=== PATIENT | male | born 1990 | race Caucasian/White ===

== ENCOUNTER 2020-02-29 14:24 | Inpatient (IN) | payer OTHER ==
[2020-02-29] MEDS ORDERED: IPRATROPIUM-ALBUTEROL 3 ML NEB INHALATION PRN (16:40)
[2020-02-29] MEDS ORDERED: PNEUMONIA PROTOCOL UTILIZED 1 EACH MISC PO PRN (16:40)
--- NOTE | 2020-02-29 16:40 | ED ---
SOB HPI - General Chief Complaint: Shortness of Breath Stated Complaint: PE and pnuemonia Time Seen by Provider: 02/29/20 14:30 Source: EMS, RN notes reviewed Mode of arrival: EMS Limitations: no limitations - History of Present Illness Initial Comments: This is a 29-year-old male who was transferred from [facility] where he presented to the emergency Department with complaints of shortness of breath cough of bloody phlegm whenever one or 2 days. He was found on evaluation to have a pulmonary embolism and a right middle lobe as well as evidence of a left lower lobe pneumonia. Question. Lesion versus mass. He was transferred here for further evaluation he has no other complaints no other prior history of PE or other known pulmonary problems. MD Complaint: shortness of breath, cough - Related Data Allergies Allergy/AdvReac Type Severity Reaction Status Date / Time No Known Allergies Allergy Verified 02/29/20 14:32 Review of Systems ROS Statement: Those systems with pertinent positive or pertinent negative responses have been documented in the HPI. ROS Other: All systems not noted in ROS Statement are negative. Past Medical History Past Medical History: No Reported History History of Any Multi-Drug Resistant Organisms: None Reported Past Surgical History: Appendectomy Past Psychological History: No Psychological Hx Reported Smoking Status: Current every day smoker Past Alcohol Use History: None Reported Past Drug Use History: None Reported General Exam - General Exam Comments Initial Comments: This is a well-developed well-nourished awake alert oriented 3 male Limitations: no limitations General appearance: alert, in no apparent distress Head exam: Present: atraumatic, normocephalic, normal inspection Eye exam: Present: normal appearance, PERRL, EOMI. Absent: scleral icterus, conjunctival injection, periorbital swelling ENT exam: Present: normal exam, mucous membranes moist Neck exam: Present: normal inspection. Absent: tenderness, meningismus, lymphadenopathy Respiratory exam: Present: decreased breath sounds. Absent: respiratory distress, wheezes, rales, rhonchi, stridor Cardiovascular Exam: Present: regular rate, normal rhythm, normal heart sounds. Absent: systolic murmur, diastolic murmur, rubs, gallop, clicks GI/Abdominal exam: Present: soft, normal bowel sounds. Absent: distended, tenderness, guarding, rebound, rigid Extremities exam: Present: normal inspection, full ROM, normal capillary refill. Absent: tenderness, pedal edema, joint swelling, calf tenderness Back exam: Present: normal inspection Neurological exam: Present: alert, oriented X3, CN II-XII intact Psychiatric exam: Present: normal affect, normal mood Skin exam: Present: warm, dry, intact, normal color. Absent: rash Course Vital Signs 02/29/20 14:26 Temperature 98.2 F Pulse Rate 92 Respiratory 14 Rate Blood Pressure 112/67 O2 Sat by Pulse 99 Oximetry Medical Decision Making - Medical Decision Making I did review the imaging and reports as well as the paperwork sent from the other hospital patient will be admitted patient will be admitted Dr. Mchugh. Disposition Clinical Impression: Pulmonary embolism, Pneumonia Disposition: ADMITTED IP TO THIS HOSP Condition: Fair Referrals: None,Stated [Primary Care Provider] - 1-2 days
[2020-02-29] MEDS ORDERED: ONDANSETRON 4 MG/2 ML VIAL IVP PRN (16:55)
[2020-02-29] MEDS ORDERED: ACETAMINOPHEN TAB 325 MG TAB PO PRN (16:55)
[2020-02-29] MEDS ORDERED: AZITHROMYCIN 500 MG in SODIUM CHLORIDE 0.9% 250 ML IVPB SCH (17:00)
--- NOTE | 2020-02-29 17:22 | P.HPIM ---
History of Present Illness H&P Date: 02/29/20 Chief Complaint: Cough and chest pain This is a 29-year-old male with past medical history significant for chronic tobacco abuse that presented to an outside emergency room with worsening cough and chest pain with deep breath. Patient informed me that couple of days ago he started having worsening cough that was originally productive of yellowish sputum but subsequently started having bright red blood. Patient said that he was having chest pain when he takes deep breath. He denies any fevers or chills. No recent sick contact. He admits to smoking one pack of cigarettes daily. He was evaluated at the outside emergency room and CT angiogram showed a pulmonary embolism within the right middle lobe pulmonary artery. Additional left and right lower lobe filling defect may be visualized on the reconstructed coronal plane images. A 2 cm right infrahilar lymph node is present. Left infrahilar adenopathy measuring 1.7 cm. There is a large consolidation along the left posterior lateral lung field measuring approximately 3.8 x 4.0 x 5.7 cm Patient was transferred to our hospital for further management. He was comfortable when I saw him in the ER. He denies shortness of breath. He denies any prior history of blood clots. He said that his mother was recently diagnosed with a pulmonary emboli. He denies any recent surgery or long trips. No other infectious factors for the VTE. Review of Systems Review of system: 14 points review of systems were obtained and were negative except to what were mentioned in the HPI. Past Medical History Past Medical History: No Reported History History of Any Multi-Drug Resistant Organisms: None Reported Past Surgical History: Appendectomy Past Psychological History: No Psychological Hx Reported Smoking Status: Current every day smoker Past Alcohol Use History: None Reported Past Drug Use History: None Reported Medications and Allergies Home Medications Medication Instructions Recorded Confirmed Type No Known Home Medications 02/29/20 02/29/20 History Allergies Allergy/AdvReac Type Severity Reaction Status Date / Time No Known Allergies Allergy Verified 02/29/20 16:48 Physical Exam Vitals: Vital Signs Temp Pulse Resp BP Pulse Ox 02/29/20 14:26 98.2 F 92 14 112/67 99 Intake and Output 02/29/20 02/29/20 02/29/20 06:59 14:59 22:59 Other: Weight 84.368 kg General: The patient is awake and alert, in no distress Eye: there is normal conjunctiva bilaterally. Neck: The neck is supple, there is no JVD. Cardiovascular: Normal S1-S2, no S3-S4, no murmurs. Respiratory: Lungs clear to auscultation bilaterally Gastrointestinal: Abdomen is soft, nontender Musculoskeletal: There is no pedal edema. Neurological:. Speech is normal. Skin: Skin is warm and dry Assessment and Plan Assessment: 1. Bilateral PE, started on IV heparin drip. No clear risk factors for VTE other than smoking cigarettes. We will obtain ultrasound of the lower extremities to rule out DVT. 2. Left lung pneumonia, with a large consolidation noted on computed tomography scan with a questionable cavitary lesion versus mass. Started on IV Zosyn. Sputum culture ordered. I would obtain pro-calcitonin. Dr. Collins consulted for further evaluation 3. Bilateral infrahilar lymphadenopathy, most likely reactive. We will need repeat imaging in 4-6 weeks 4. Tobacco abuse: Counseled extensively to quit. Nicotine patch ordered. Today, I reviewed his medication list and lab work results. Most of the lab work done at outside hospital was within normal/acceptable range. No evidence of sepsis. Patient is stable. We will continue antibiotic and IV heparin. Awaiting pulmonology evaluation. The patient is admitted with an anticipated greater than 2 midnight stay for evaluation of the medical problems noted above Discussed with: Patient and nursing staff Anticipated discharge date: To be determined based on clinical course Anticipated discharge place: home A total of 45 minutes was spent on the care of this complex patient more than 50% of the time was spent in counseling and care coordination.
[2020-02-29] MEDS: HEPARIN SOD,PORK IN 0.45% NACL 25,000 UNIT in 0.45% NACL 1 250ML.BAG IV SCH (17:24)
[2020-02-29] MEDS: SODIUM CHLORIDE 0.9% 1,000 ML IV SCH (17:30)
[2020-02-29 19:05] LABS: Prothrombin Time 10.1 sec (9.0-12.0)
[2020-02-29 19:08] LABS: Basophils # (A) 0.1 k/uL (0-0.2); Basophils % (A) 1 %; Eosinophils # (A) 0.2 k/uL (0-0.7); Eosinophils % (A) 3 %; HCT 41.4 % (39.0-53.0); HGB 13.5 gm/dL (13.0-17.5); Lymphocytes # (A) 1.9 k/uL (1.0-4.8); Lymphocytes % (A) 24 %; MCH 32.5 pg (25.0-35.0); MCHC 32.5 g/dL (31.0-37.0); MCV 99.7 fL (80.0-100.0); Mean Platelet Volume 6.7; Monocytes # (A) 0.5 k/uL (0-1.0); Monocytes % (A) 6 %; Neutrophils # (A) 5.4 k/uL (1.3-7.7); Neutrophils % (A) 66 %; Platelet Count 364 k/uL (150-450); RBC 4.15 m/uL (4.30-5.90); RDW 12.4 % (11.5-15.5); WBC 8.1 k/uL (3.8-10.6)
--- NOTE | 2020-02-29 19:30 | US ---
EXAMINATION TYPE: US venous doppler duplex LE BI DATE OF EXAM: 02/29/2020 7:04 PM COMPARISON: NONE CLINICAL HISTORY: Bilateral PE rule out DVT. SIDE PERFORMED: Bilateral TECHNIQUE: The lower extremity deep venous system is examined utilizing real time linear array sonog jennifer with graded compression, doppler sonography and color-flow sonography. VESSELS IMAGED: External Iliac Vein (EIV) Common Femoral Vein Deep Femoral Vein Greater Saphenous Vein * Femoral Vein Popliteal Vein Small Saphenous Vein * Proximal Calf Veins (* superficial vessels) Right Leg: Negative for DVT Left Leg: Negative for DVT IMPRESSION: No evidence of deep vein thrombosis in both legs.
[2020-02-29] MEDS: NICOTINE 14MG/24HR PATCH TRANSDERM SCH (19:31)
[2020-02-29] MEDS: HEPARIN SODIUM,PORCINE 5,000 UNIT/ML 1 ML VIAL IV PRN (19:57)
--- NOTE | 2020-02-29 20:07 | P.MHFACE ---
Face to Face Restrain/Seclus - Evaluation Patient's Immediate Situation: Endangers self safety, Endangers staff safety Patient's Reaction to the Intervention: Appropriate, Calm Patient's Medical & Behavioral Condition: Awake, Alert Need to Continue or Terminate Restraint or Seclusion: Continue Need to Continue or Terminate Restraint/Seclusion - Comment: Notified by the staff that the patient had collected some pieces of metal were found in his bed. The patient had also been threatening the staff and other patients. Discussed with the patient regarding the need for cooperation. Advised the staff to discontinue the restraints as soon as possible once the patient is no longer a threat to himself or the staff. Continue the restraints for now.
[2020-02-29] MEDS: PIPERACILLIN-TAZOBACTAM 3.375 GM in SODIUM CHLORIDE 0.9% 100 ML IVPB SCH (23:50)
[2020-03-01] MEDS: SODIUM CHLORIDE 0.9% 1,000 ML IV SCH ×2 (02:40→14:09)
[2020-03-01] MEDS: HEPARIN SOD,PORK IN 0.45% NACL 25,000 UNIT in 0.45% NACL 1 250ML.BAG IV SCH ×2 (06:29→17:40)
[2020-03-01 06:44] LABS: Basophils # (A) 0.1 k/uL (0-0.2); Basophils % (A) 1 %; Eosinophils # (A) 0.3 k/uL (0-0.7); Eosinophils % (A) 3 %; HCT 44.9 % (39.0-53.0); Lymphocytes % (A) 17 %; MCH 33.2 pg (25.0-35.0); MCHC 33.3 g/dL (31.0-37.0); MCV 99.8 fL (80.0-100.0); Mean Platelet Volume 6.1; Monocytes # (A) 0.7 k/uL (0-1.0); Monocytes % (A) 6 %; Neutrophils # (A) 8.1 k/uL (1.3-7.7); Neutrophils % (A) 72 %; Platelet Count 357 k/uL (150-450); RDW 12.3 % (11.5-15.5); WBC 11.3 k/uL (3.8-10.6)
--- NOTE | 2020-03-01 08:28 | XR ---
EXAMINATION TYPE: XR chest 2V DATE OF EXAM: 03/01/2020 COMPARISON: NONE HISTORY: Pneumonia. TECHNIQUE: Frontal and lateral views of the chest are obtained. FINDINGS: There is peripheral left basilar focal consolidation. Right lung is clear. No pleural effu camilla or pneumothorax seen bilaterally. The cardiac silhouette size is within normal limits. The oss eous structures are intact. IMPRESSION: Peripheral basilar left lower lobe acute pneumonic infiltrate. A Yellow level critical message alert has been initiated for Edward Holder via the [employer] on 03/01/2020 8:25 AM. This message alert has been sent to Edward Holder via [employer] preferences provided by the clinician for the receipt of Radiology Critical Findings. Message ID [id number].
[2020-03-01] MEDS: NICOTINE 14MG/24HR PATCH TRANSDERM SCH (08:36)
[2020-03-01] MEDS: PIPERACILLIN-TAZOBACTAM 3.375 GM in SODIUM CHLORIDE 0.9% 100 ML IVPB SCH ×2 (08:37→15:41)
--- NOTE | 2020-03-01 10:39 | P.PN ---
Subjective Progress Note Date: 03/01/20 Principal diagnosis: Shortness of breath and hemoptysis Patient is feeling well today. He said that shortness of breath is improving. No acute events overnight reported by nursing staff. Objective - Vital Signs Vital signs: Vital Signs Temp 97.8 F 03/01/20 07:00 Pulse 87 03/01/20 07:00 Resp 18 03/01/20 07:00 BP 114/62 03/01/20 07:00 Pulse Ox 97 03/01/20 07:00 Intake & Output 02/29/20 03/01/20 03/01/20 18:59 06:59 18:59 Intake Total 456.065 Output Total 400 Balance 56.065 Weight 84.368 kg Intake: Intake, IV Titration 234.065 Amount Heparin Sod,Pork in 0.45% 234.065 NaCl 25,000 unit In 0.45 % NaCl 1 250ml.bag @ 18 UNITS/KG/HR 15.186 mls/hr IV .[id number] [facility] Rx#: [id number] Oral 222 Output: Urine 400 Other: Voiding Method Toilet # Voids 1 - Exam General: The patient is awake and alert, in no distress Eye: there is normal conjunctiva bilaterally. Neck: The neck is supple, there is no JVD. Cardiovascular: Normal S1-S2, no S3-S4, no murmurs. Respiratory: Lungs clear to auscultation bilaterally Gastrointestinal: Abdomen is soft, nontender Musculoskeletal: There is no pedal edema. Neurological:. Speech is normal. Skin: Skin is warm and dry - Labs CBC & Chem 7: 03/01/20 06:31 Labs: Abnormal Lab Results - Last 24 Hours (Table) 02/29/20 02/29/20 03/01/20 Range/Units 18:20 22:33 06:31 WBC 11.3 H (3.8-10.6) k/uL RBC 4.15 L (4.30-5.90) m/uL Neutrophils # 8.1 H (1.3-7.7) k/uL APTT 52.1 H (22.0-30.0) sec 03/01/20 Range/Units 09:27 WBC (3.8-10.6) k/uL RBC (4.30-5.90) m/uL Neutrophils # (1.3-7.7) k/uL APTT 33.7 H (22.0-30.0) sec Assessment and Plan Assessment: This is a 29-year-old male with no significant past medical history who presented to an outside emergency room with worsening shortness of breath and hemoptysis. He was evaluated at the outside emergency room and CT angiogram showed a pulmonary embolism within the right middle lobe pulmonary artery. Additional left and right lower lobe filling defect may be visualized on the reconstructed coronal plane images. A 2 cm right infrahilar lymph node is present. Left infrahilar adenopathy measuring 1.7 cm. There is a large consolidation along the left posterior lateral lung field measuring approximately 3.8 x 4.0 x 5.7 cm Patient was transferred to our hospital for further management. 1. Bilateral PE, started on IV heparin drip. No clear risk factors for VTE other than smoking cigarettes. ultrasound of the lower extremities negative for DVT. 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 I would start Coumadin bridging today with Coumadin 10 mg once now and 5 mg daily starting tomorrow. Monitor INR daily. 2. Left lung pneumonia, with a large consolidation noted on computed tomography scan with a questionable cavitary lesion versus mass. Started on IV Zosyn. Sputum culture ordered. pro-calcitonin normal. Blood culture pending. Dr. Collins consulted for further evaluation 3. Bilateral infrahilar lymphadenopathy, most likely reactive. We will need repeat imaging in 4-6 weeks 4. Tobacco abuse: Counseled extensively to quit. Nicotine patch ordered. Today, I reviewed his medication list and lab work results. Patient is stable. We will continue antibiotic and IV heparin. Awaiting pulmonology evaluation.
[2020-03-01] MEDS: HEPARIN SODIUM,PORCINE 5,000 UNIT/ML 1 ML VIAL IV PRN (10:43)
[2020-03-01] MEDS ORDERED: AZITHROMYCIN 500 MG in SODIUM CHLORIDE 0.9% 250 ML IVPB SCH (12:00)
[2020-03-01 15:02] LABS: African American GFR (CKD) 140.9 (60.0-200.0); Albumin 4.3 g/dL (3.80-4.90); Albumin/Globulin Ratio 1.87 (1.60-3.17); Anion Gap 10.5 mmol/L (4.00-12.00); BUN/Creat Ratio 8.75 Ratio (12.00-20.00); Calcium 9.2 mg/dL (8.7-10.3); Carbon Dioxide 22.5 mmol/L (21.6-31.8); Globulin 2.3 g/dL (1.6-3.3); Non-African American GFR(CKD) 121.6 (60.0-200.0); Potassium 4.6 mmol/L (3.5-5.5); Total Bilirubin 0.5 mg/dL (0.2-1.2); Total Protein 6.6 g/dL (6.2-8.2)
--- NOTE | 2020-03-01 17:37 | CT ---
EXAMINATION TYPE: CT angio chest DATE OF EXAM: 03/01/2020 COMPARISON: None HISTORY: Follow up for PE CT DLP: 401.4 mGycm Automated exposure control for dose reduction was used. CONTRAST: Performed with IV Contrast, patient injected with 100 mL of Isovue 370. There are 3-D post processed images. Images obtained from the thoracic inlet to the diaphragm with IV contrast. There is a 6 cm area of somewhat rounded airspace consolidation in the left lower lobe posteriorly ad jacent to the pleura. There is small left pleural effusion. There is minimal subsegmental atelectasis at the lung bases. Heart size is normal. Thoracic aorta is intact. There is no aneurysm or dissection. There are multiple filling defects in the right lower lobe pulmonary artery. There are also some fill ing defects in proximal branches of the left lower lobe pulmonary artery. There is compression fracture of T9 and T8 T7 vertebra up to 40%. The ribs appear intact. IMPRESSION: Left lower lobe consolidation could relate to pulmonary infarct or pneumonia. Bilateral extensive pul monary emboli in the lower lobes. This exam was discussed with the nurse Radha at 5:30 PM on the erlinda or.
[2020-03-01] MEDS ORDERED: WARFARIN 10 MG TAB PO ONE (18:00)
--- NOTE | 2020-03-01 22:30 | CONS ---
CONSULTATION PULMONARY/CRITICAL CARE CONSULTATION: DATE OF SERVICE: 03/01/2020 REASON FOR CONSULTATION: Shortness of breath, pulmonary embolism, pneumonia. This is a 29-year-old gentleman who was transferred down from [facility], at which time he presented to the emergency department there with complaints of shortness of breath, bloody phlegm and just not feeling well. He had not been feeling well for 2 days or so prior to his admission to the emergency room at [facility]. Apparently he was evaluated there and was found to have a pulmonary embolism and also possible pneumonia involving the left lower lobe. He was transferred down to our facility for further evaluation. He denied any fever or chills. He was coughing but not producing much phlegm. Some of the phlegm did have blood in it. He apparently states that his mother was recently told that she had a pulmonary embolism as well. He does smoke cigarettes. He smokes about a pack a day. 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 ALLERGIES: DENIED. HOME MEDICATIONS: None. CURRENT MEDICATIONS: Current medications include Tylenol, DuoNeb, IV heparin, nicotine patch, Zosyn, Zofran and warfarin. MEDICAL HISTORY: Negative. SURGICAL HISTORY: Appendectomy. SOCIAL HISTORY: Positive for one pack of cigarettes a day. He denies any alcohol use or illicit drug use. FAMILY HISTORY: Noncontributory save for mother with a prior history of pulmonary embolism. REVIEW OF SYSTEMS: CONSTITUTIONAL: Negative. NEUROLOGIC: Negative. HEENT: Negative. CARDIOVASCULAR: Negative. PULMONARY: Shortness of breath, cough, non-productive. GI: Negative. : Negative. RHEUMATOLOGIC: Negative. IMMUNOLOGIC: Negative. ENDOCRINOLOGIC: Negative. DERMATOLOGIC: Negative. PHYSICAL EXAMINATION: VITAL SIGNS: Current vital signs are reviewed. Temperature is 98.7 heart rate 84, respiratory rate 18, blood pressure 129/73, mean 91, room-air saturation 97%. GENERAL APPEARANCE: Appears in no acute distress. HEENT: Examination is grossly unremarkable. NECK: Supple. Full range of motion. No adenopathy. Neck veins are flat. CARDIOVASCULAR: Examination reveals regular rhythm and rate. S1, S2 normal. No S3, S4 or murmur. LUNGS: Relatively clear. Breath sounds equal. Mild rhonchi. No wheezes or crackles. ABDOMEN: Soft. EXTREMITIES: Intact. No cyanosis, clubbing or edema. SKIN: Without rash. NEUROLOGIC: Neurologic examination is nonfocal. LABS/IMAGING: Reviewed. White count 11.3, hemoglobin 15, hematocrit 44.9, platelet count 357,000. PTT is 33.7. Sodium, potassium, chloride, CO2 all normal. Anion gap is normal. BUN and creatinine were normal. The rest of the labs look okay. Procalcitonin was 0.06, which is in the normal range. Coronavirus was negative. Microbiology is negative. Venous Doppler study was negative for DVT in both legs. Chest x-ray was done which showed a patchy infiltrate in the left lower lobe. Medications are reviewed. ASSESSMENT: 1. Community-acquired pneumonia, left lower lobe. 2. Apparent recent diagnosis of pulmonary embolism in an outside hospital. 3. No evidence of deep venous thrombosis. 4. Ongoing tobacco use with nicotine addiction. 5. No prior medical history. PLAN: The patient really should be treated for community-acquired pneumonia. He should be on oral Zithromax and IV Rocephin. The patient was started on warfarin. He remains on IV heparin. My inclination is to repeat the CT angiogram, as it seems unlikely that this patient would have had a pulmonary embolism. I have not had the opportunity to review the scan from the outside hospital. Additional recommendations and suggestions are forthcoming. Prognosis is guarded. Will continue to follow. MMODL / IJN: [id number] /
[2020-03-02] MEDS: PIPERACILLIN-TAZOBACTAM 3.375 GM in SODIUM CHLORIDE 0.9% 100 ML IVPB SCH ×2 (00:46→08:32)
[2020-03-02] MEDS: HEPARIN SOD,PORK IN 0.45% NACL 25,000 UNIT in 0.45% NACL 1 250ML.BAG IV SCH (05:15)
[2020-03-02 07:22] LABS: Basophils # (A) 0.1 k/uL (0-0.2); Basophils % (A) 1 %; Eosinophils # (A) 0.3 k/uL (0-0.7); Eosinophils % (A) 3 %; HGB 13.2 gm/dL (13.0-17.5); Lymphocytes # (A) 1.1 k/uL (1.0-4.8); Lymphocytes % (A) 12 %; MCH 33.3 pg (25.0-35.0); MCHC 33.9 g/dL (31.0-37.0); MCV 98.1 fL (80.0-100.0); Mean Platelet Volume 6.2; Monocytes # (A) 0.5 k/uL (0-1.0); Monocytes % (A) 5 %; Neutrophils % (A) 78 %; Platelet Count 346 k/uL (150-450); RBC 3.98 m/uL (4.30-5.90); RDW 12.1 % (11.5-15.5)
[2020-03-02 08:24] LABS: INR 1.1 (<1.2); Partial Thromboplastin Time 38.1 sec (22.0-30.0); Prothrombin Time 10.8 sec (9.0-12.0)
[2020-03-02] MEDS: NICOTINE 14MG/24HR PATCH TRANSDERM SCH (08:32)
[2020-03-02] MEDS: HEPARIN SODIUM,PORCINE 5,000 UNIT/ML 1 ML VIAL IV PRN (08:55)
--- NOTE | 2020-03-02 15:13 | P.PN ---
Subjective Progress Note Date: 03/02/20 Principal diagnosis: Bilateral extensive pulmonary emboli in the lower lobes, with evidence of left lower lobe consolidation that could be related to pulmonary infarction or pneumonia On 03/02/2020 patient seen in follow-up on general medical surgical floor, repeat CTA chest was obtained last night owing left lower lobe consolidation that could relate to pulmonary infarction or pneumonia, and bilateral extensive pulmonary emboli in the lower lobes. Patient remains on heparin infusion, he was started on Coumadin for anticoagulation, today's INR is 1.1. He is awake and alert, he sitting up in the recliner, in no acute distress resting on room air, with a pulse ox 90%, complaints of chest pain, no hemoptysis, his been afebrile, hemodynamically patient has been stable. He states he his mother had a history of PEs, and we will obtain a hematology evaluation for possibility of a genetic hypercoagulable state related to genetic component. She has had no fever or chills, remains on Zosyn for empiric antibiotic coverage, he is on nebulizers bronchodilators, he was started on Lovenox at therapeutic dose as a bridge to anticoagulation. Objective - Vital Signs Vital signs: Vital Signs Temp 98.0 F 03/02/20 14:58 Pulse 82 03/02/20 14:58 Resp 18 03/02/20 14:58 BP 137/76 03/02/20 14:58 Pulse Ox 98 03/02/20 14:58 Intake & Output 03/01/20 03/02/20 03/02/20 18:59 06:59 18:59 Intake Total 1360.456 114 8665.163 Balance 1360.685 117 8937.163 Intake: Intake, IV Titration 780.974 250 781.163 Amount Heparin Sod,Pork in 0.45% 230.974 250 81.163 NaCl 25,000 unit In 0.45 % NaCl 1 250ml.bag @ 18 UNITS/KG/HR 15.186 mls/hr IV .[id number] [facility]OTT Rx#: [id number] Piperacillin-Tazobactam 3 100 100 .375 gm In Sodium Chloride 0.9% 100 ml @ 25 mls/hr IVPB Q8HR SCOTT Rx# :[id number] Sodium Chloride 0.9% 1, 400 600 000 ml @ 100 mls/hr IV . Q10H SCOTT Rx#:[id number] cefTRIAXone 2 gm In 50 Sodium Chloride 0.9% 50 ml @ 100 mls/hr IVPB Q24H [facility]OTT Rx#:[id number] Oral 580 300 450 Other: Voiding Method Toilet Toilet # Voids 1 - Exam GENERAL EXAM: Alert, very pleasant, 29-year-old white male, sitting up in the recliner, he is on room air with a pulse of 90% comfortable in no apparent di stress. HEAD: Normocephalic/atraumatic. EYES: Normal reaction of pupils, equal size. Conjunctiva pink, sclera white. NOSE: Clear with pink turbinates. THROAT: No erythema or exudates. NECK: No masses, no JVD, no thyroid enlargement, no adenopathy. CHEST: No chest wall deformity. Symmetrical expansion. LUNGS: Equal air entry with no crackles, wheeze, rhonchi or dullness. CVS: Regular rate and rhythm, normal S1 and S2, no gallops, no murmurs, no rubs ABDOMEN: Soft, nontender. No hepatosplenomegaly, normal bowel sounds, no guarding or rigidity. EXTREMITIES: No clubbing, no edema, no cyanosis, 2+ pulses and upper and lower extremities. MUSCULOSKELETAL: Muscle strength and tone normal. SPINE: No scoliosis or deformity SKIN: No rashes CENTRAL NERVOUS SYSTEM: Alert and oriented -3. No focal deficits, tone is normal in all 4 extremities. PSYCHIATRIC: Alert and oriented -3. Appropriate affect. Intact judgment and insight. - Labs CBC & Chem 7: 03/02/20 07:08 03/01/20 06:31 Labs: Abnormal Lab Results - Last 24 Hours (Table) 03/01/20 03/02/20 03/02/20 Range/Units 16:00 07:08 07:08 RBC 3.98 L (4.30-5.90) m/uL APTT 56.1 H 38.1 H (22.0-30.0) sec 03/02/20 Range/Units 14:33 RBC (4.30-5.90) m/uL APTT 47.1 H (22.0-30.0) sec Microbiology - Last 24 Hours (Table) 02/29/20 16:56 Blood Culture - Preliminary Blood No Growth after 24 hours Assessment and Plan Plan: Assessment: #1. Acute community acquired pneumonia in the left lower lobe, and bilateral infra hilar lymphadenopathy likely reactive, we'll follow up with imaging in 4-6 weeks #2. Acute bilateral extensive pulmonary emboli in the lower lobes, and the possibility of left lower lobe pulmonary infarction is not excluded #3. Chronic smoker #4. History of PE in his mother Plan: Coumadin has been started, Lovenox is being used for branch, continue with antibiotics, switch IV Zosyn to oral doxycycline. Hemodynamically stable, no altered mentation, no compressive chest pain worsening dyspnea or hemoptysis. We will obtain a hematology consultation for possibility of genetic mutation and hypercoagulable state related to that based on his history of pulmonary embolism and his mother. Patient will need outpatient follow-up in the office in the 7- 10 days, and a follow-up computed tomography scan in 4-6 weeks for follow-up on pulmonary emboli and hilar lymphadenopathy which is likely reactive. I performed a history & physical examination of the patient and discussed their management with my nurse practitioner, Ginette Edmonds. I reviewed the nurse practitioner's note and agree with the documented findings and plan of care. Lung sounds are positive for clear breath sounds. The findings and the impression was discussed with the patient. I attest to the documentation by the nurse practitioner. Time with Patient: Less than 30
[2020-03-02] MEDS: ENOXAPARIN 120 MG/0.8 ML SYRINGE SQ SCH (15:29)
[2020-03-02] MEDS ORDERED: WARFARIN 5 MG TAB PO SCH (18:00)
[2020-03-02] MEDS ORDERED: WARFARIN 5 MG TAB PO ONE (18:00)
[2020-03-02] MEDS: DOXYCYCLINE 100 MG CAP PO SCH (20:11)
[2020-03-03 07:18] LABS: Basophils % (A) 1 %; Eosinophils # (A) 0.3 k/uL (0-0.7); Eosinophils % (A) 4 %; Lymphocytes # (A) 1.1 k/uL (1.0-4.8); Lymphocytes % (A) 13 %; MCHC 32.7 g/dL (31.0-37.0); MCV 97.8 fL (80.0-100.0); Mean Platelet Volume 6.1; Monocytes # (A) 0.5 k/uL (0-1.0); Monocytes % (A) 6 %; Neutrophils # (A) 6.3 k/uL (1.3-7.7); Neutrophils % (A) 76 %; Platelet Count 370 k/uL (150-450); RDW 12.2 % (11.5-15.5); WBC 8.2 k/uL (3.8-10.6)
[2020-03-03 07:43] VITALS: BP 106/61; PULSE 55; RESP 17; TEMP 98.4
[2020-03-03] MEDS: NICOTINE 14MG/24HR PATCH TRANSDERM SCH (08:07)
[2020-03-03] MEDS: DOXYCYCLINE 100 MG CAP PO SCH (08:07)
[2020-03-03] MEDS: ENOXAPARIN 120 MG/0.8 ML SYRINGE SQ SCH (08:07)
--- NOTE | 2020-03-03 08:16 | P.PN ---
Subjective Progress Note Date: 03/02/20 Principal diagnosis: CC: Hemoptysis Patient says that he still has hemoptysis. He denies any fever or chills. He also denies any shortness of breath. Patient states that his cough has improved and now he only has a "smoker's cough" Objective - Vital Signs Vital signs: Vital Signs Temp 98.4 F 03/03/20 07:00 Pulse 55 L 03/03/20 07:00 Resp 17 03/03/20 07:00 BP 106/61 03/03/20 07:00 Pulse Ox 98 03/03/20 07:00 Intake & Output 03/02/20 03/03/20 03/03/20 18:59 06:59 18:59 Intake Total 1231.163 540 Balance 1231.163 540 Intake: Intake, IV Titration 781.163 Amount Heparin Sod,Pork in 0.45% 81.163 NaCl 25,000 unit In 0.45 % NaCl 1 250ml.bag @ 18 UNITS/KG/HR 15.186 mls/hr IV .[id number] [facility] Rx#: [id number] Piperacillin-Tazobactam 3 100 .375 gm In Sodium Chloride 0.9% 100 ml @ 25 mls/hr IVPB Q8HR [facility] Rx# :[id number] Sodium Chloride 0.9% 1, 600 000 ml @ 100 mls/hr IV . Q10H [facility] Rx#:[id number] Oral 450 540 Other: Voiding Method Toilet Toilet # Voids 2 - Exam General examination - Alert and Oriented 3 in NAD Heart - + S1S2 no murmurs Lungs - Clear to auscultation Abdomen soft NT ND +ve BS Extremities - No edema AIR VALUE TESTER - Moving all 4 extremities spontaneously Psych - Calm and cooperative - Labs CBC & Chem 7: 03/03/20 06:38 03/01/20 06:31 Labs: Abnormal Lab Results - Last 24 Hours (Table) 03/02/20 03/02/20 Range/Units 07:08 14:33 APTT 38.1 H 47.1 H (22.0-30.0) sec Microbiology - Last 24 Hours (Table) 03/02/20 20:11 Sputum Culture - Preliminary Sputum 02/29/20 16:56 Blood Culture - Preliminary Blood No Growth after 48 hours Assessment and Plan Assessment: This is a 29-year-old male with no significant past medical history who presented to an outside emergency room with worsening shortness of breath and hemoptysis. He was evaluated at the outside emergency room and CT angiogram s howed a pulmonary embolism within the right middle lobe pulmonary artery. Additional left and right lower lobe filling defect may be visualized on the reconstructed coronal plane images. A 2 cm right infrahilar lymph node is present. Left infrahilar adenopathy measuring 1.7 cm. There is a large consolidation along the left posterior lateral lung field measuring approximately 3.8 x 4.0 x 5.7 cm Patient was transferred to our hospital for further management. 1. Bilateral PE: We'll discontinue heparin drip and start the patient on Lovenox. Resume Coumadin. senior research manager to arrange for INR checks with PCP. Hematology consult for hypercoagulable workup. Patient states that he has a family history of blood clots. 2. Left lung pneumonia: Repeat CTA chest done at our hospital showed left lower lobe consolidation that could be pulmonary infarct versus pneumonia. Pulmonology discontinued Zosyn as started the patient on doxycycline. Patient will follow up with pulmonology in 7-10 days. He will need repeat imaging to ensure resolution of the consolidation. This will be followed up with pulmonology. 3. Bilateral infrahilar lymphadenopathy, most likely reactive. We will need r epeat imaging in 4-6 weeks. Patient will follow up with pulmonology as outpatient. I have discussed this with the patient at great length. 4. Tobacco abuse: Counseled extensively to quit. Nicotine patch ordered. Anticipate patient will be ready for discharge in the next 24 hours
[2020-03-03 10:51] LABS: INR 1.18 (0.90-1.11); Prothrombin Time 12.5 sec (9.9-11.9)
--- NOTE | 2020-03-03 11:36 | P.DS ---
Providers Date of admission: 02/29/20 16:41 Expected date of discharge: 03/03/20 Attending physician: George Mchugh Consults: 02/29/20 16:55 Consult Physician Routine Consulting Provider: Francheska Collins Consult Reason/Comments: Cavitary pneumonia? PE Do you want consulting provider notified?: Yes 03/02/20 11:17 Consult Physician Routine Consulting Provider: Poncho Naik Consult Reason/Comments: unprovoked PE, family hx of PE Do you want consulting provider notified?: Yes Primary care physician: Stated None Hospital Course: Discharge Diagnosis: 1. Bilateral PE: 2. Left lung pneumonia: 3. Bilateral infrahilar lymphadenopathy, most likely reactive. 4. Tobacco abuse: Counseled extensively to quit. Nicotine patch ordered. Hospital Course: This is a 29-year-old male with no significant past medical history who presented to an outside emergency room with worsening shortness of breath and hemoptysis. He was evaluated at the outside emergency room and CT angiogram showed a pulmonary embolism. A 2 cm right infrahilar lymph node is present. Left infrahilar adenopathy measuring 1.7 cm. There is a large consolidation along the left posterior lateral lung field measuring approximately 3.8 x 4.0 x 5.7 cm. Patient was transferred to our hospital for further management. Patient was started on IV antibiotics for community-acquired pneumonia. Patient was also started on heparin drip and Coumadin. Patient had a repeat CTA chest that showed left lower lobe consolidation which is likely pneumonia versus pulmonary infarct. At the time of discharge patient was transitioned to Lovenox subcu. Patient will be discharged on 7.5 mg Coumadin. Patient was told that he needs to check his INR in 2 days and to resume his Lovenox until his INR is between 2 and 3. Patient told to follow-up with his PCP to adjust his Coumadin level. Patient will also be discharged on 4 more days of doxycycline to complete his antibiotic course for possible pneumonia. Patient told to follow-up with pulmonology regarding his CT chest findings. Patient also instructed to follow with hematology for hypercoagulable workup. 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 Patient Condition at Discharge: Fair Plan - Discharge Summary Discharge Rx Participant: No New Discharge Prescriptions: New Warfarin [Coumadin] 7.5 mg PO HS 14 Days #14 tab Enoxaparin [Lovenox] 80 mg SQ Q12HR 7 Days #14 syringe Doxycycline [Vibramycin] 100 mg PO BID 4 Days #8 cap Discharge Medication List Doxycycline [Vibramycin] 100 mg PO BID 4 Days #8 cap 03/03/20 [Rx] Enoxaparin [Lovenox] 80 mg SQ Q12HR 7 Days #14 syringe 03/03/20 [Rx] Warfarin [Coumadin] 7.5 mg PO HS 14 Days #14 tab 03/03/20 [Rx] Follow up Appointment(s)/Referral(s): Poncho Naik MD [STAFF PHYSICIAN] - 1 Week Edward Joe DO [Doctor of Osteopathic Medicine] - 1 Week Opal Arauz NPC [REFERRING] - 1-2 Days Ambulatory/Diagnostic Orders: Prothrombin Time INR [LAB.AMB] Time Frame: 2 Days, Location: None Selected Prothrombin Time INR [LAB.AMB] Time Frame: 2 Days, Location: None Selected Patient Instructions/Handouts: Warfarin (By mouth), Vitamin K in Foods (DC) Discharge Disposition: HOME SELF-CARE
--- NOTE | 2020-03-03 15:33 | P.PN ---
Subjective Progress Note Date: 03/03/20 Principal diagnosis: Bilateral extensive pulmonary emboli in the lower lobes, with evidence of left lower lobe consolidation that could be related to pulmonary infarction or pneumonia On 03/02/2020 patient seen in follow-up on general medical surgical floor, repeat CTA chest was obtained last night owing left lower lobe consolidation that could relate to pulmonary infarction or pneumonia, and bilateral extensive pulmonary emboli in the lower lobes. Patient remains on heparin infusion, he was started on Coumadin for anticoagulation, today's INR is 1.1. He is awake and alert, he sitting up in the recliner, in no acute distress resting on room air, with a pulse ox 90%, complaints of chest pain, no hemoptysis, his been afebrile, hemodynamically patient has been stable. He states he his mother had a history of PEs, and we will obtain a hematology evaluation for possibility of a genetic hypercoagulable state related to genetic component. She has had no fever or chills, remains on Zosyn for empiric antibiotic coverage, he is on nebulizers bronchodilators, he was started on Lovenox at therapeutic dose as a bridge to anticoagulation. On 03/03/2020 patient seen in follow-up on general medical surgical floor, doing well, no specific complaints, no shortness of breath, chest pain. Lung sounds are clear, patient is on room air, tolerating ambulation, no acute events overnight, Prilosec been stable, she was started on Coumadin, and he was started on Lovenox 120 mg subcutaneously daily, his O2 saturations had remained stable on room air, his had no fever no chills, blood and sputum cultures have shown no growth, he remains on empiric antibiotics for possibility of pneumonia. No altered mentation, no complaints of hemoptysis, or chest pain. He is anxious to go home today. He is doing well, she was seen by hematology and was recommended to follow up on an outpatient basis Objective - Vital Signs Vital signs: Vital Signs Temp 98.4 F 03/03/20 07:00 Pulse 55 L 03/03/20 07:00 Resp 17 03/03/20 07:00 BP 106/61 03/03/20 07:00 Pulse Ox 98 03/03/20 07:00 Intake & Output 03/02/20 03/03/20 03/03/20 18:59 06:59 18:59 Intake Total 1231.163 540 Balance 1231.163 540 Intake: Intake, IV Titration 781.163 Amount Heparin Sod,Pork in 0.45% 81.163 NaCl 25,000 unit In 0.45 % NaCl 1 250ml.bag @ 18 UNITS/KG/HR 15.186 mls/hr IV .[id number] [facility] Rx#: [id number] Piperacillin-Tazobactam 3 100 .375 gm In Sodium Chloride 0.9% 100 ml @ 25 mls/hr IVPB Q8HR [facility] Rx# :[id number] Sodium Chloride 0.9% 1, 600 000 ml @ 100 mls/hr IV . Q10H [facility] Rx#:[id number] Oral 450 540 Other: Voiding Method Toilet Toilet # Voids 2 2 - Exam GENERAL EXAM: Alert, very pleasant, 29-year-old white male, sitting up in the recliner, he is on room air with a pulse of 90% comfortable in no apparent distress. HEAD: Normocephalic/atraumatic. EYES: Normal reaction of pupils, equal size. Conjunctiva pink, sclera white. NOSE: Clear with pink turbinates. THROAT: No erythema or exudates. NECK: No masses, no JVD, no thyroid enlargement, no adenopathy. CHEST: No chest wall deformity. Symmetrical expansion. LUNGS: Equal air entry with no crackles, wheeze, rhonchi or dullness. CVS: Regular rate and rhythm, normal S1 and S2, no gallops, no murmurs, no rubs ABDOMEN: Soft, nontender. No hepatosplenomegaly, normal bowel sounds, no guarding or rigidity. EXTREMITIES: No clubbing, no edema, no cyanosis, 2+ pulses and upper and lower extremities. MUSCULOSKELETAL: Muscle strength and tone normal. SPINE: No scoliosis or deformity SKIN: No rashes CENTRAL NERVOUS SYSTEM: Alert and oriented -3. No focal deficits, tone is normal in all 4 extremities. PSYCHIATRIC: Alert and oriented -3. Appropriate affect. Intact judgment and insight. - Labs CBC & Chem 7: 03/03/20 06:38 03/01/20 06:31 Labs: Abnormal Lab Results - Last 24 Hours (Table) 03/03/20 Range/Units 06:38 PT 12.5 H (9.9-11.9) sec INR 1.18 H (0.90-1.11) Microbiology - Last 24 Hours (Table) 03/02/20 20:11 Gram Stain - Preliminary Sputum Sputum Culture - Preliminary 02/29/20 16:56 Blood Culture - Preliminary Blood No Growth after 48 hours Assessment and Plan Plan: Assessment: #1. Acute community acquired pneumonia in the left lower lobe, and bilateral infra hilar lymphadenopathy likely reactive, we'll follow up with imaging in 4-6 weeks #2. Acute bilateral extensive pulmonary emboli in the lower lobes, and the possibility of left lower lobe pulmonary infarction is not excluded #3. Chronic smoker #4. History of PE in his mother Plan: Patient is a well, we'll switch to Lovenox to 80 mg twice daily, continue with Coumadin. Patient can finish outpatient course of oral antibiotics, she will need outpatient follow-up in the office with Dr. Chaney in 7-10 days. He will need outpatient follow-up with the hematology for possibility of genetic mutation predisposing the patient to hyper coagulability. If that's the case patient will likely need lifetime anticoagulation. Stable for discharge from pulmonary perspective I performed a history & physical examination of the patient and discussed their management with my nurse practitioner, Ginette Edmonds. I reviewed the nurse practitioner's note and agree with the documented findings and plan of care. Lung sounds are positive for clear breath sounds. The findings and the impression was discussed with the patient. I attest to the documentation by the nurse practitioner. Time with Patient: Less than 30
--- NOTE | 2020-03-03 16:29 | P.CONS ---
History of Present Illness - Reason for Consult Consult date: 03/03/20 PE Requesting physician: Edward Joe - Chief Complaint SOB, hemoptysis - History of Present Illness Mr. Mccray is a very pleasant male we have been asked to see to concerns for possible hypercoaguable state. Pt has 2 days of persistent and progressive SOB, associated with chest pain and SOB. He presented to [facility] where he was found to have RML, bilateral lower lobe PE, suspect LLL pneumonia and bilateral adenopathy. He was transferred here. BLE doppler was negative for DVT. He has been on heparin drip, his respiratory symptoms and chest pain are much better, no recent hemoptysis. He has no personal history of blood clots, his mother was diagnosed with a PE in the last year, no other family history, no recent long trips, prolonged immobility, surgery, hospitalizations, autoimmune diseases, hepatitis, concerns for HIV, or hormone/steroid use. He did quit drinking ETOH about 1 mo ago, he did suffer a seizure and hit his head around that time, no seizures since. Denies swelling of the extremities, no other c/o. Review of Systems 14 point ROS is negative except as stated in HPI Past Medical History Past Medical History: No Reported History, Pulmonary Embolus (PE) (03/03/20) History of Any Multi-Drug Resistant Organisms: None Reported Past Surgical History: Appendectomy Past Anesthesia/Blood Transfusion Reactions: No Reported Reaction Past Psychological History: No Psychological Hx Reported Smoking Status: Current every day smoker Past Alcohol Use History: None Reported Past Drug Use History: None Reported Medications and Allergies Home Medications Medication Instructions Recorded Confirmed Type Doxycycline [Vibramycin] 100 mg PO BID 4 Days #8 cap 03/03/20 Rx Enoxaparin [Lovenox] 80 mg SQ Q12HR 7 Days #14 syringe 03/03/20 Rx Warfarin [Coumadin] 7.5 mg PO HS 14 Days #14 tab 03/03/20 Rx Allergies Allergy/AdvReac Type Severity Reaction Status Date / Time No Known Allergies Allergy Verified 02/29/20 16:48 Physical Exam Vitals: Vital Signs Temp Pulse Resp BP Pulse Ox 03/03/20 07:00 98.4 F 55 L 17 106/61 98 03/03/20 01:20 98.5 F 71 18 115/66 96 03/02/20 19:30 98.6 F 99 20 129/81 97 Intake and Output 03/03/20 03/03/20 03/03/20 06:59 14:59 22:59 Intake Total 240 Balance 240 Intake: Oral 240 Other: # Voids 2 2 - Constitutional General appearance: average body habitus, cooperative, no acute distress - EENT Eyes: anicteric sclerae, EOMI ENT: hearing grossly normal, normal oropharynx - Neck Neck: no lymphadenopathy - Respiratory Respiratory: bilateral: CTA - Cardiovascular Rhythm: regular Heart sounds: normal: S1, S2 Abnormal Heart Sounds: no systolic murmur, no diastolic murmur, no rub, no S3 Gallop, no S4 Gallop, no click, no other leg Peripheral Edema: bilateral: None - Gastrointestinal General gastrointestinal: no absent bowel sounds, no decreased bowel sounds, no distended, no hepatomegaly, no hyperactive bowel sounds, normal bowel sounds, no organomegaly, no rigid, no scaphoid, soft, no splenomegaly, no tenderness, no umbilical hernia, no ventral hernia - Integumentary Integumentary: normal - Neurologic Neurologic: CNII-XII intact - Musculoskeletal Musculoskeletal: strength equal bilaterally - Psychiatric Psychiatric: A&O x's 3, appropriate affect, intact judgment & insight Results CBC & Chem 7: 03/03/20 06:38 03/01/20 06:31 Labs: Abnormal Lab Results - Last 24 Hours (Table) 03/03/20 Range/Units 06:38 PT 12.5 H (9.9-11.9) sec INR 1.18 H (0.90-1.11) Microbiology - Last 24 Hours (Table) 03/02/20 20:11 Gram Stain - Preliminary Sputum Sputum Culture - Preliminary 02/29/20 16:56 Blood Culture - Preliminary Blood No Growth after [address] scan - chest: report reviewed Venous US: report reviewed Assessment and Plan (1) Pulmonary embolism Narrative/Plan: Dr. Naik discussed with the pt that, based on history, he has an unprovoked PE. Research and literature recommend lifelong anticoagulation with unprovoked, severe PE. Hypercoaguable work up is indicated and will be scheduled outpatient. Reviewed with pt the importance of taking his meds as prescribed, explained what bridging with lovenox and coumadin means and how to do it. Discussed bleeding precautions. All pt questions answered to his satisfaction. Status: Acute Priority: High Code(s): I26.99 - OTHER PULMONARY EMBOLISM WITHOUT ACUTE COR PULMONALE SNOMED Code(s): 91945759 Plan: Doctor attests: I performed a history and physical examination of this patient, developed impression and plan of care. Discussed with dictator. I agree with dictators note, documented as a scribe. Time with Patient: Greater than 30 (35 spent antiocoagulation education, bleeding precautions>50% time counseling)
[2020-03-03] MEDS ORDERED: WARFARIN 10 MG TAB PO ONE (18:00)
[2020-03-03] MEDS ORDERED: ENOXAPARIN 80 MG/0.8 ML SYRINGE SQ SCH (21:00)
== END 2020-03-03 13:06 | disposition home or self-care (01) | DRG 175 ==
LOC: EC 14:24 → 4SSUR 16:41
PROVIDERS: ADMIT Internal Medicine; ATTEND Internal Medicine
DX: I26.99 Other pulmonary embolism without acute cor pulmonale (principal); J18.9 Pneumonia, unspecified organism; R04.2 Hemoptysis; Z20.828 Contact with and (suspected) exposure to other viral communicable diseases; F17.210 Nicotine dependence, cigarettes, uncomplicated; R59.0 Localized enlarged lymph nodes; Z71.6 Tobacco abuse counseling; Z90.49 Acquired absence of other specified parts of digestive tract
CPT/HCPCS: 71046; 71275; 80053; 84145; 85025; 85610; 85730; 87040; 87070; 87205; 93005; 93970; 96374; 99285

== ENCOUNTER 2020-03-05 23:33 | Emergency (ER) | payer OTHER ==
[2020-03-05 23:44] VITALS: TEMP 98.8
--- NOTE | 2020-03-06 00:10 | XR ---
EXAMINATION TYPE: XR chest 1V DATE OF EXAM: 03/06/2020 COMPARISON: 03/01/2020 HISTORY: Pneumonia TECHNIQUE: 2 views FINDINGS: There is a 5 cm patch of airspace infiltrate in the left lower lobe. The other lung mcdaniels are clear. Heart and mediastinum are normal. There are chest leads. Bony thorax is intact. IMPRESSION: There is some left lower lobe pneumonia not significantly changed compared to recent exam . Normal heart.
[2020-03-06 00:34] LABS: Basophils # (A) 0.1 k/uL (0-0.2); Basophils % (A) 1 %; Eosinophils # (A) 0.5 k/uL (0-0.7); Eosinophils % (A) 4 %; HCT 39.8 % (39.0-53.0); HGB 13.2 gm/dL (13.0-17.5); Lymphocytes # (A) 2.2 k/uL (1.0-4.8); Lymphocytes % (A) 21 %; MCHC 33.3 g/dL (31.0-37.0); MCV 96.1 fL (80.0-100.0); Mean Platelet Volume 6.3; Monocytes # (A) 0.7 k/uL (0-1.0); Monocytes % (A) 6 %; Neutrophils # (A) 6.9 k/uL (1.3-7.7); Neutrophils % (A) 66 %; Platelet Count 372 k/uL (150-450); RBC 4.14 m/uL (4.30-5.90); RDW 11.6 % (11.5-15.5); WBC 10.5 k/uL (3.8-10.6)
[2020-03-06 00:47] LABS: INR 1.4 (<1.2); Partial Thromboplastin Time 32.6 sec (22.0-30.0); Prothrombin Time 13.8 sec (9.0-12.0)
[2020-03-06 00:50] LABS: African American GFR (CKD) >90 (>60 ml/min/1.73 sqM); Anion Gap 6 mmol/L; Blood Urea Nitrogen 17 mg/dL (9-20); Calcium 9.3 mg/dL (8.4-10.2); Carbon Dioxide 27 mmol/L (22-30); Chloride 104 mmol/L (98-107); Glucose 110 mg/dL (74-99); Non-African American GFR(CKD) >90 (>60 ml/min/1.73 sqM); Potassium 3.9 mmol/L (3.5-5.1); Sodium 137 mmol/L (137-145)
--- NOTE | 2020-03-06 01:42 | ED ---
General Adult HPI - General Chief complaint: GI Bleed Stated complaint: coughing up blood Time Seen by Provider: 03/05/20 23:45 Source: patient, EMS - History of Present Illness Initial comments: This patient is 29-year-old man recently diagnosed with pulmonary embolism. The patient had been admitted in the hospital last week. The patient started on Lovenox and Coumadin and antibiotics. Tonight the patient had a coughing episode and then noticed that he had caught small amount of red blood. When the patient had another coughing episode he had further blood so he felt he should be evaluated. Patient denies new chest pain. No further dyspnea. He is not having signs or symptoms of anemia, including no lightheadedness, syncope, palpitations, chest pain, dyspnea, diaphoresis. Onset/Timin -: hour(s) Location: chest Severity scale (1-10): 1 Quality: dull Consistency: intermittent Improves with: none Worsens with: none Associated Symptoms: denies other symptoms Treatments Prior to Arrival: none - Related Data Previous Rx's Medication Instructions Recorded Doxycycline [Vibramycin] 100 mg PO BID 4 Days #8 cap 03/03/20 Enoxaparin [Lovenox] 80 mg SQ Q12HR 7 Days #14 syringe 03/03/20 Warfarin [Coumadin] 7.5 mg PO HS 14 Days #14 tab 03/03/20 Allergies Allergy/AdvReac Type Severity Reaction Status Date / Time No Known Allergies Allergy Verified 03/05/20 23:44 Review of Systems ROS Statement: Those systems with pertinent positive or pertinent negative responses have been documented in the HPI. ROS Other: All systems not noted in ROS Statement are negative. Constitutional: Denies: fever, chills, weakness Respiratory: Reports: cough, hemoptysis Cardiovascular: Denies: chest pain, palpitations, orthopnea, edema, syncope Gastrointestinal: Denies: abdominal pain, nausea, vomiting Genitourinary: Denies: dysuria, hematuria Musculoskeletal: Denies: back pain Skin: Denies: rash Neurological: Denies: headache Hematological/Lymphatic: Reports: other (Anticoagulants) Past Medical History Past Medical History: Pulmonary Embolus (PE) History of Any Multi-Drug Resistant Organisms: None Reported Past Surgical History: Appendectomy Past Anesthesia/Blood Transfusion Reactions: No Reported Reaction Past Psychological History: No Psychological Hx Reported Smoking Status: Current every day smoker Past Alcohol Use History: None Reported Past Drug Use History: None Reported General Exam General appearance: alert, in no apparent distress Head exam: Present: atraumatic, normocephalic Eye exam: Present: normal appearance. Absent: scleral icterus, conjunctival injection ENT exam: Present: normal oropharynx Respiratory exam: Present: normal lung sounds bilaterally. Absent: respiratory distress, wheezes, rales, rhonchi, stridor, chest wall tenderness Cardiovascular Exam: Present: regular rate, normal rhythm, normal heart sounds. Absent: systolic murmur, diastolic murmur, rubs, gallop GI/Abdominal exam: Present: soft. Absent: distended, tenderness, guarding, rebound, rigid, mass Extremities exam: Present: normal inspection, normal capillary refill. Absent: pedal edema, calf tenderness Back exam: Present: normal inspection. Absent: CVA tenderness (R), CVA tenderness (L) Neurological exam: Present: alert Skin exam: Present: warm, dry, intact, normal color. Absent: rash Course Vital Signs 03/05/20 03/06/20 03/06/20 23:41 02:00 02:12 Temperature 98.8 F 98.8 F Pulse Rate 93 76 76 Respiratory 19 16 16 Rate Blood Pressure 121/76 97/60 97/60 O2 Sat by Pulse 99 97 97 Oximetry Medical Decision Making - Medical Decision Making Patient is 21-year-old man presenting with episode of hemoptysis. Recent history reveals pulmonary embolism and probable pulmonary infarct versus small area of pneumonia. Further questioning reveals that the patient has not had any symptoms of pneumonia, including no fever or chills. He was not having productive cough. As patient has had no further hemoptysis and his blood counts are stable, vital signs are normal and his coagulation numbers are good. I suspect a small amount of hemoptysis is sequela of the pulmonary infarct. Discussed appropriate further care and return parameters. - Lab Data Result diagrams: 03/06/20 00:22 03/06/20 00:22 Lab Results 03/06/20 03/06/20 03/06/20 Range/Units 00:22 00:22 00:22 WBC 10.5 (3.8-10.6) k/uL RBC 4.14 L (4.30-5.90) m/uL Hgb 13.2 (13.0-17.5) gm/dL Hct 39.8 (39.0-53.0) % MCV 96.1 (80.0-100.0) fL MCH 32.0 (25.0-35.0) pg MCHC 33.3 (31.0-37.0) g/dL RDW 11.6 (11.5-15.5) % Plt Count 372 (150-450) k/uL Neutrophils % 66 % Lymphocytes % 21 % Monocytes % 6 % Eosinophils % 4 % Basophils % 1 % Neutrophils # 6.9 (1.3-7.7) k/uL Lymphocytes # 2.2 (1.0-4.8) k/uL Monocytes # 0.7 (0-1.0) k/uL Eosinophils # 0.5 (0-0.7) k/uL Basophils # 0.1 (0-0.2) k/uL PT 13.8 H (9.0-12.0) sec INR 1.4 H (<1.2) APTT 32.6 H (22.0-30.0) sec Sodium 137 (137-145) mmol/L Potassium 3.9 (3.5-5.1) mmol/L Chloride 104 (98-107) mmol/L Carbon Dioxide 27 (22-30) mmol/L Anion Gap 6 mmol/L BUN 17 (9-20) mg/dL Creatinine 0.83 (0.66-1.25) mg/dL Est GFR (CKD-EPI)AfAm >90 (>60 ml/min/1.73 sqM) Est GFR (CKD-EPI)NonAf >90 (>60 ml/min/1.73 sqM) Glucose 110 H (74-99) mg/dL Calcium 9.3 (8.4-10.2) mg/dL Disposition Clinical Impression: Hemoptysis Disposition: HOME SELF-CARE Condition: Good Instructions (If sedation given, give patient instructions): Hemoptysis (ED) Is patient prescribed a controlled substance at d/c from ED?: No Referrals: None,Stated [Primary Care Provider] - 1-2 days
[2020-03-06 02:05] VITALS: BP 97/60; PULSE 76; RESP 16
== END 2020-03-06 02:13 | disposition home or self-care (01) ==
LOC: EC 23:33
DX: R04.2 Hemoptysis (principal); F17.200 Nicotine dependence, unspecified, uncomplicated; Z90.49 Acquired absence of other specified parts of digestive tract; Z86.711 Personal history of pulmonary embolism
CPT/HCPCS: 36415; 71045; 80048; 85025; 85610; 85730; 99283

== ENCOUNTER 2020-05-07 15:22 | Emergency (ER) | payer OTHER ==
[2020-05-07 15:34] VITALS: RESP 18; TEMP 98.6
[2020-05-07 16:33] LABS: Basophils # (A) 0.1 k/uL (0-0.2); Basophils % (A) 1 %; Eosinophils # (A) 0.3 k/uL (0-0.7); Eosinophils % (A) 5 %; HCT 43.7 % (39.0-53.0); HGB 15.4 gm/dL (13.0-17.5); Lymphocytes % (A) 31 %; MCH 32.6 pg (25.0-35.0); MCHC 35.2 g/dL (31.0-37.0); MCV 92.4 fL (80.0-100.0); Mean Platelet Volume 6.1; Monocytes # (A) 0.4 k/uL (0-1.0); Monocytes % (A) 6 %; Neutrophils # (A) 3.5 k/uL (1.3-7.7); Neutrophils % (A) 56 %; Platelet Count 226 k/uL (150-450); RBC 4.73 m/uL (4.30-5.90); RDW 12.7 % (11.5-15.5); WBC 6.4 k/uL (3.8-10.6)
[2020-05-07 16:44] LABS: ALT 25 U/L (4-49); AST 27 U/L (17-59); African American GFR (CKD) >90 (>60 ml/min/1.73 sqM); Albumin 4.3 g/dL (3.5-5.0); Alkaline Phosphatase 70 U/L (38-126); Anion Gap 11 mmol/L; Blood Urea Nitrogen 13 mg/dL (9-20); Carbon Dioxide 23 mmol/L (22-30); Chloride 110 mmol/L (98-107); Glucose 98 mg/dL (74-99); Non-African American GFR(CKD) >90 (>60 ml/min/1.73 sqM); Potassium 4.1 mmol/L (3.5-5.1); Sodium 144 mmol/L (137-145); Total Bilirubin 0.3 mg/dL (0.2-1.3); Total Protein 7.5 g/dL (6.3-8.2)
[2020-05-07 16:47] LABS: Partial Thromboplastin Time 23.1 sec (22.0-30.0)
--- NOTE | 2020-05-07 16:52 | ED ---
Dizziness HPI - General Source: patient Mode of arrival: ambulatory Limitations: no limitations <Braden Randall - Last Filed: 05/07/20 19:34> <Fanny Dorsey - Last Filed: 05/08/20 22:57> - General Chief Complaint: Dizziness Stated Complaint: Light headed, dizziness Time Seen by Provider: 05/07/20 16:02 - History of Present Illness Initial Comments: 29-year-old male presenting to the emergency department the chief complaint of lightheadedness and dizziness. Patient states she was diagnosed with a pulmonary embolism and was started on Coumadin. States however, he's not been taking his medication as prescribed. States over the last few days he's been feeling fatigued without any other symptoms. States that he is also looking to get his INR level checked. He denies any chest pain or shortness of breath or hemoptysis. States that he has been exposed to Covid positive patients. Denies any chest pain or shortness of breath. Denies any night sweats fevers or chills. (Braden Randall) - Related Data Home Medications Medication Instructions Recorded Confirmed Albuterol Sulfate [Proair Hfa] 1 - 2 puff INHALATION RT-Q6H PRN 05/07/2009/21 Rivaroxaban [Xarelto] 20 mg PO DAILY 05/07/20 05/07/20 Allergies Allergy/AdvReac Type Severity Reaction Status Date / Time No Known Allergies Allergy Verified 05/07/20 17:33 Review of Systems ROS Other: All systems not noted in ROS Statement are negative. <Braden Randall - Last Filed: 05/07/20 19:34> ROS Other: All systems not noted in ROS Statement are negative. <Fanny Dorsey - Last Filed: 05/08/20 22:57> ROS Statement: Those systems with pertinent positive or pertinent negative responses have been documented in the HPI. Past Medical History Past Medical History: Pulmonary Embolus (PE) History of Any Multi-Drug Resistant Organisms: None Reported Past Surgical History: Appendectomy Past Anesthesia/Blood Transfusion Reactions: No Reported Reaction Past Psychological History: No Psychological Hx Reported Smoking Status: Current every day smoker Past Alcohol Use History: None Reported Past Drug Use History: None Reported <Braden Randall - Last Filed: 05/07/20 19:34> General Exam Limitations: no limitations General appearance: alert, in no apparent distress Head exam: Present: atraumatic, normocephalic, normal inspection Eye exam: Present: normal appearance, PERRL, EOMI Pupils: Present: normal accommodation ENT exam: Present: normal exam, normal oropharynx, mucous membranes moist, TM's normal bilaterally, normal external ear exam Neck exam: Present: normal inspection, full ROM. Absent: tenderness Respiratory exam: Present: normal lung sounds bilaterally. Absent: respiratory distress, wheezes, rales Cardiovascular Exam: Present: regular rate, normal rhythm, normal heart sounds. Absent: systolic murmur, diastolic murmur Extremities exam: Present: normal inspection, full ROM, normal capillary refill, other. Absent: tenderness, pedal edema, joint swelling, calf tenderness Back exam: Present: normal inspection, full ROM. Absent: tenderness, CVA tenderness (R), CVA tenderness (L) Neurological exam: Present: alert, oriented X3, CN II-XII intact, normal gait Psychiatric exam: Present: normal affect, normal mood. Absent: depressed, agitated Skin exam: Present: warm, dry, intact, normal color <Braden Randall - Last Filed: 05/07/20 19:34> Course Vital Signs 05/07/20 05/07/20 15:31 18:31 Temperature 98.6 F 98.6 F Pulse Rate 96 90 Respiratory 18 18 Rate Blood Pressure 113/68 112/72 O2 Sat by Pulse 96 97 Oximetry Medical Decision Making - Lab Data Result diagrams: 05/07/20 16:21 05/07/20 16:21 <Braden Randall - Last Filed: 05/07/20 19:34> - Lab Data Result diagrams: 05/07/20 16:21 05/07/20 16:21 <Fanny Dorsey - Last Filed: 05/08/20 22:57> - Medical Decision Making 29-year-old male presenting to the emergency department of dizziness and lightheadedness. Physical examination is unremarkable. CBC CMP is unremarkable. Coags within normal limits. Initial troponin and d-dimer negat valeriy. EKG shows sinus rhythm. Patient is positive for coronavirus. I suspect this is the patient's cause of symptoms. On reevaluation, patient states that he wants to go home and is not seeking any further management. Patient states that he is going to follow with his primary care physician. I advised the patient to continue taking his prescribed medication as directed and not skip doses. Strict return parameters were thoroughly discussed the patient is in a sitting agreeable. Case discussed with physician. (Braden Randall) I was available for consultation in the emergency department. The history and physical exam were done by the midlevel provider. I was consulted for this patients care. I reviewed the case with the midlevel provider and based on their presentation of the patient, I agree with the assessment, medical decision making and plan of care as documented. Chart was dictated using [employer] dictation software. Attempts were made to correct any dictation errors however some typographical errors may persist. Patient seen during Covid-19 pandemic. (Fanny Dorsey) - Lab Data Lab Results 05/07/20 05/07/20 05/07/20 Range/Units 16:21 16:21 16:21 WBC 6.4 (3.8-10.6) k/uL RBC 4.73 (4.30-5.90) m/uL Hgb 15.4 (13.0-17.5) gm/dL Hct 43.7 (39.0-53.0) % MCV 92.4 (80.0-100.0) fL MCH 32.6 (25.0-35.0) pg MCHC 35.2 (31.0-37.0) g/dL RDW 12.7 (11.5-15.5) % Plt Count 226 (150-450) k/uL MPV 6.1 Neutrophils % 56 % Lymphocytes % 31 % Monocytes % 6 % Eosinophils % 5 % Basophils % 1 % Neutrophils # 3.5 (1.3-7.7) k/uL Lymphocytes # 2.0 (1.0-4.8) k/uL Monocytes # 0.4 (0-1.0) k/uL Eosinophils # 0.3 (0-0.7) k/uL Basophils # 0.1 (0-0.2) k/uL PT 10.0 (9.0-12.0) sec INR 1.0 (<1.2) APTT 23.1 (22.0-30.0) sec D-Dimer (<0.60) mg/L FEU Sodium 144 (137-145) mmol/L Potassium 4.1 (3.5-5.1) mmol/L Chloride 110 H (98-107) mmol/L Carbon Dioxide 23 (22-30) mmol/L Anion Gap 11 mmol/L BUN 13 (9-20) mg/dL Creatinine 1.10 (0.66-1.25) mg/dL Est GFR (CKD-EPI)AfAm >90 (>60 ml/min/1.73 sqM) Est GFR (CKD-EPI)NonAf >90 (>60 ml/min/1.73 sqM) Glucose 98 (74-99) mg/dL Calcium 9.0 (8.4-10.2) mg/dL Total Bilirubin 0.3 (0.2-1.3) mg/dL AST 27 (17-59) U/L ALT 25 (4-49) U/L Alkaline Phosphatase 70 (38-126) U/L Troponin I (0.000-0.034) ng/mL Total Protein 7.5 (6.3-8.2) g/dL Albumin 4.3 (3.5-5.0) g/dL Coronavirus (PCR) (Not Detectd) 05/07/20 05/07/20 05/07/20 Range/Units 16:21 17:04 17:10 WBC (3.8-10.6) k/uL RBC (4.30-5.90) m/uL Hgb (13.0-17.5) gm/dL Hct (39.0-53.0) % MCV (80.0-100.0) fL MCH (25.0-35.0) pg MCHC (31.0-37.0) g/dL RDW (11.5-15.5) % Plt Count (150-450) k/uL MPV Neutrophils % % Lymphocytes % % Monocytes % % Eosinophils % % Basophils % % Neutrophils # (1.3-7.7) k/uL Lymphocytes # (1.0-4.8) k/uL Monocytes # (0-1.0) k/uL Eosinophils # (0-0.7) k/uL Basophils # (0-0.2) k/uL PT (9.0-12.0) sec INR (<1.2) APTT (22.0-30.0) sec D-Dimer 0.36 (<0.60) mg/L FEU Sodium (137-145) mmol/L Potassium (3.5-5.1) mmol/L Chloride (98-107) mmol/L Carbon Dioxide (22-30) mmol/L Anion Gap mmol/L BUN (9-20) mg/dL Creatinine (0.66-1.25) mg/dL Est GFR (CKD-EPI)AfAm (>60 ml/min/1.73 sqM) Est GFR (CKD-EPI)NonAf (>60 ml/min/1.73 sqM) Glucose (74-99) mg/dL Calcium (8.4-10.2) mg/dL Total Bilirubin (0.2-1.3) mg/dL AST (17-59) U/L ALT (4-49) U/L Alkaline Phosphatase (38-126) U/L Troponin I <0.012 (0.000-0.034) ng/mL Total Protein (6.3-8.2) g/dL Albumin (3.5-5.0) g/dL Coronavirus (PCR) Detected A (Not Detectd) Disposition Is patient prescribed a controlled substance at d/c from ED?: No Time of Disposition: 18:22 <Braden Randall - Last Filed: 05/07/20 19:34> <Fanny Dorsey - Last Filed: 05/08/20 22:57> Clinical Impression: COVID-19 Disposition: HOME SELF-CARE Condition: Stable Instructions (If sedation given, give patient instructions): Chronic Cough (ED) Additional Instructions: Follow with her primary care physician. Return to emergency department if symptoms worsen. Referrals: None,Stated [Primary Care Provider] - 1-2 days
[2020-05-07 18:32] VITALS: BP 112/72; PULSE 90
== END 2020-05-07 18:36 | disposition home or self-care (01) ==
LOC: EC 15:22
DX: U07.1 COVID-19 (principal); R42 Dizziness and giddiness; F17.200 Nicotine dependence, unspecified, uncomplicated; Z86.711 Personal history of pulmonary embolism; Z79.01 Long term (current) use of anticoagulants; Z79.899 Other long term (current) drug therapy
CPT/HCPCS: 36415; 80053; 84484; 85025; 85379; 85610; 85730; 87635; 93005; 99284